=== PATIENT | male | born 1950 | race Caucasian/White ===

== ENCOUNTER 2018-09-11 07:55 | Day surgery (SDC) | payer MEDICARE, OTHER ==
[2018-09-11] MEDS ORDERED: Lactated Ringers 1,000 ML IV SCH (08:15)
[2018-09-11] MEDS ORDERED: Propofol 200 MG/20 ML SDV ONE (08:41)
[2018-09-11] MEDS ORDERED: fentaNYL 100 MCG/2 ML SDV ONE (08:41)
[2018-09-11] MEDS ORDERED: Midazolam 1 MG/ML 2 ML SDV ONE (08:41)
--- NOTE | 2018-09-11 10:41 | OR ---
DATE OF PROCEDURE: 09/11/2018 PREOPERATIVE DIAGNOSIS: Colon cancer screening. POSTOPERATIVE DIAGNOSES: Diverticulosis, pedunculated transverse colon polyp. PROCEDURE PERFORMED: Colonoscopy to the cecum with biopsy and then snare cautery polypectomy of pedunculated transverse colon polyp. SURGEON: Gio Fink MD ANESTHESIA: IV anesthesia with monitored anesthesia care. INDICATION: This 67-year-old white male is referred for a colonoscopy for colon cancer screening. He says his last colonoscopic exam was done 10 years ago. I counseled him for the procedure, including risks and alternatives, and he gave his informed consent to proceed. DESCRIPTION OF PROCEDURE: The patient was placed in the left lateral decubitus position. IV anesthesia was administered by the Anesthesia Service. Time-out was held. A rectal exam was performed, which was unremarkable. The flexible video Olympus colonoscope was introduced through his anus, up his rectum, and out his colon all the way to the cecum. En route, we saw multiple diverticula both left and right-sided. There was no bleeding or inflammation associated with them. Several of them had stool impacted in them. Once the cecum was reached, the scope was slowly withdrawn examining the mucosa throughout. No other mucosal abnormalities noted until we reached the transverse colon. Here, a pedunculated polyp was seen. We biopsied this to ensure having tissue and then placed a snare about its base. It was elevated up away from the bowel wall and amputated as electrocautery was applied. The polyp was aspirated through the scope and captured in a polyp trap. The scope was withdrawn further with no other neoplastic lesions seen. The scope was retroflexed in the rectum with the distal rectum appearing unremarkable. The scope was straightened and removed. He tolerated the procedure well. Gio Fink MD /[id number] MTDD
== END 2018-09-11 11:00 | disposition home or self-care (01) ==
LOC: JP.SDS 07:55
PROVIDERS: ATTEND Surgery
DX: Z12.11 Encounter for screening for malignant neoplasm of colon (principal); D12.3 Benign neoplasm of transverse colon; K57.30 Diverticulosis of large intestine without perforation or abscess without bleeding; I10 Essential (primary) hypertension; E11.9 Type 2 diabetes mellitus without complications; E78.00 Pure hypercholesterolemia, unspecified
CPT/HCPCS: 45385; 88305; J2250; J2704; J3010; J7120

== ENCOUNTER → 2021-09-17 | Day surgery (SDC) | payer MEDICARE, OTHER ==
[~2021-09-17] MED LIST: Midazolam 1 MG/ML 2 ML SDV ONE; Propofol 200 MG/20 ML SDV ONE; fentaNYL 100 MCG/2 ML SDV ONE
[2021-09-17] MEDS: Dextrose 5%-Lactated Ringers 1,000 ML IV SCH (10:05)
== END ==
LOC: JP.SDS 09:14
PROVIDERS: ATTEND Family Medicine
DX: Z12.11 Encounter for screening for malignant neoplasm of colon (principal); D12.2 Benign neoplasm of ascending colon; K57.30 Diverticulosis of large intestine without perforation or abscess without bleeding; E11.9 Type 2 diabetes mellitus without complications; I10 Essential (primary) hypertension; E78.5 Hyperlipidemia, unspecified
CPT/HCPCS: 45380; 88305; J2250; J2704; J3010; J7121

== ENCOUNTER 2024-09-19 06:44 | Day surgery (SDC) | payer MEDICARE, OTHER ==
[2024-09-19] MEDS ORDERED: fentaNYL 100 MCG/2 ML SDV ONE (07:20)
[2024-09-19] MEDS ORDERED: Propofol 200 MG/20 ML SDV ONE (07:20)
[2024-09-19] MEDS: Lactated Ringers 1,000 ML IV SCH (07:39)
== END 2024-09-19 09:35 | disposition home or self-care (01) ==
LOC: JP.SDS 06:44
PROVIDERS: ATTEND Surgery
DX: Z12.11 Encounter for screening for malignant neoplasm of colon (principal); I10 Essential (primary) hypertension; E11.9 Type 2 diabetes mellitus without complications; E66.9 Obesity, unspecified
CPT/HCPCS: G0104; J2704; J3010; J7120; 00812-QZ

== ENCOUNTER 2024-09-20 08:53 | Day surgery (SDC) | payer MEDICARE, OTHER ==
[2024-09-20] MEDS: Lactated Ringers 1,000 ML IV SCH (09:35)
[2024-09-20] MEDS ORDERED: Propofol 200 MG/20 ML SDV ONE (10:39)
[2024-09-20] MEDS ORDERED: fentaNYL 100 MCG/2 ML SDV ONE (10:40)
== END 2024-09-20 12:23 | disposition home or self-care (01) ==
LOC: JP.SDS 08:53
PROVIDERS: ATTEND Surgery
DX: Z12.11 Encounter for screening for malignant neoplasm of colon (principal); D12.2 Benign neoplasm of ascending colon; K63.89 Other specified diseases of intestine; K57.30 Diverticulosis of large intestine without perforation or abscess without bleeding; I10 Essential (primary) hypertension; E78.5 Hyperlipidemia, unspecified; E11.9 Type 2 diabetes mellitus without complications
CPT/HCPCS: 00811; 45380; 45385; 88305; J2704; J3010; J7120